=== PATIENT | female | born 1965 | race Caucasian/White ===

== ENCOUNTER 2018-07-23 12:06 | Emergency (ER) | payer OTHER ==
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
== END 2018-07-23 14:05 | disposition home or self-care (01) ==
LOC: VM.ED 12:06
DX: S29.002A Unspecified injury of muscle and tendon of back wall of thorax, initial encounter (principal); M62.830 Muscle spasm of back; R51 Headache; M54.2 Cervicalgia; V47.6XXA Car passenger injured in collision with fixed or stationary object in traffic accident, initial encounter
CPT/HCPCS: 70450; 72125; 72128; 72131; 99284-25